=== PATIENT | female | born 1975 | race Caucasian/White ===

== ENCOUNTER 2019-07-24 13:13 | Observation (INO) ==
--- NOTE | 2019-07-24 13:57 | Emergency Department Note ---
Entered by Marcie Kam acting as a scribe for Tobi Mccauley DO History of Present Illness General Chief complaint: Cardiac Assessment Stated complaint: Tachy, HTN, anxious Time Seen by Provider: 07/24/19 13:31 Source: patient History of Present Illness Onset (ago): hour(s) (this morning) Location: chest Pain Consistency: + intermittent Quality: + other (tachycardia) Relieved By: not by medication (Aspirin) Associated symptoms: + denies other symptoms (abdominal pain, difficulty breathing, shortness of breath) and + other (dizziness, near-syncope, hypertension, burning in chest, arms and hand numbness) The patient is a 44 year old female that is presenting to the Emergency Room with complaints of intermittent episodes of tachycardia that started this morning. The patient reports that she was sitting in [employer] when she started to feel strange. She states that she felt dizzy and near-syncopal. She notes that she went out to the lobby and felt better after drinking some water. 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 She states that she had a friend measure her blood pressure, which was in the 150 systolic range. She notes that she took an aspirin and felt slightly better. She states that she went home and her symptoms returned. She reports that she felt like her heart was on fire and as though it was going to burst out of her chest. She denies any significant difficulty breathing. She notes that her arms and hands felt numb. She denies any difficulty walking but notes that she did not try walking much. She denies any abdominal pain. She notes that she had her menstrual period last week and states that it was one week late. The patient denies any recent long travel or surgical procedures. She denies any current chest pain or shortness of breath. She notes that she feels calm currently. She notes that she drank some coffee but no more than usual. She denies any history of hypertension. She denies any significant family history. She notes that she takes a low dose of Depakote daily and a multivitamin. She denies taking any control. The patient arrived via EMS. EMS reports that the patients systolic blood pressure was over 200 and her diastolic was in the 140 range. EMS states that the patient was shaking all over. EMS notes that the patient was given 1mg- Ativan on the way to the ED which dropped her blood pressure to 160/100. The patients nursing team notes that the patients blood pressure was 170/110 on arrival with a heart rate of 120bpm. Home Medications Home Medications Medication Instructions Recorded Confirmed Type divalproex 250 mg PO QPM 07/24/19 07/24/19 History magnesium oxide 400 mg PO QPM 07/24/19 07/24/19 History multivitamin 1 tab PO QAM 07/24/19 07/24/19 History riboflavin (vitamin B2) 25 mg PO QPM 07/24/19 07/24/19 History sumatriptan succinate 100 mg PO UD PRN 07/24/19 07/24/19 History Allergies Allergy/AdvReac Type Severity Reaction Status Date / Time No Known Allergies Allergy Mild Verified 07/24/19 14:09 Past Med/Surg History Medical History Migraine Family History Other No significant family history Social History Preferred Language: Hebrew Communication Ability: Effective marital status: Current Living Situation: Spouse and Family current occupational status: employed Feels Safe at Home: Yes Smoking Status: Never smoker Review of Systems See HPI for pertinent positives & negatives. and A total of 10 systems reviewed and were otherwise negative Physical Exam Vital Signs Vital Signs - 24 hr 07/24/19 12:56 07/24/19 13:23 07/24/19 13:41 Temperature 36.6 C Temperature Source Oral Oral Pulse Rate 118 H 125 H Pulse Rate from SpO2 Sensor 127 H Pulse Rhythm Regular Pulse Strength Normal Respiratory Rate 18 21 Respiratory Effort / Characteristics Non-Labored Respiratory Depth Normal Blood Pressure 172/109 H 142/87 H Blood Pressure Mean 130 101 Blood Pressure Position Lying Pulse Oximetry 99 99 Oxygen Delivery Method Room Air Room Air Sepsis Recent Fever Within 48 Hours No Sepsis Action Taken by Nursing No Action Required Pulse Oximetry Post Tiitration 07/24/19 13:44 07/24/19 13:45 07/24/19 14:15 Temperature Temperature Source Pulse Rate 129 H Pulse Rate from SpO2 Sensor 129 H 111 H Pulse Rhythm Pulse Strength Respiratory Rate 23 16 Respiratory Effort / Characteristics Respiratory Depth Blood Pressure Blood Pressure Mean Blood Pressure Position Pulse Oximetry 98 97 98 Oxygen Delivery Method Room Air Sepsis Recent Fever Within 48 Hours Sepsis Action Taken by Nursing Pulse Oximetry Post Tiitration 98 07/24/19 15:00 07/24/19 15:30 07/24/19 16:00 Temperature Temperature Source Pulse Rate 135 H 121 H 119 H Pulse Rate from SpO2 Sensor 135 H 122 H 121 H Pulse Rhythm Pulse Strength Respiratory Rate 19 14 14 Respiratory Effort / Characteristics Respiratory Depth Blood Pressure 158/106 H 160/96 H 159/98 H Blood Pressure Mean 125 114 109 Blood Pressure Position Pulse Oximetry 99 100 100 Oxygen Delivery Method Room Air Room Air Sepsis Recent Fever Within 48 Hours Sepsis Action Taken by Nursing Pulse Oximetry Post Tiitration 07/24/19 16:30 07/24/19 17:00 Temperature Temperature Source Pulse Rate 115 H 113 H Pulse Rate from SpO2 Sensor 115 H 114 H Pulse Rhythm Pulse Strength Respiratory Rate 14 20 Respiratory Effort / Characteristics Respiratory Depth Blood Pressure 144/88 H 145/94 H Blood Pressure Mean 106 106 Blood Pressure Position Pulse Oximetry 100 99 Oxygen Delivery Method Room Air Room Air Sepsis Recent Fever Within 48 Hours Sepsis Action Taken by Nursing Pulse Oximetry Post Tiitration GENERAL: The patient is awake and alert. She is somewhat anxious appearing. EYES: The conjunctivae are clear. The pupils are round and reactive. EARS, NOSE, MOUTH AND THROAT: The nose is without any evidence of any deformity. Mucous membranes are moist. Tongue is midline. NECK: The neck is nontender and supple. RESPIRATORY: Normal respiratory effort is noted there is no evidence of wheezing rhonchi or rales CARDIOVASCULAR: Tachycardic rate with regular rhythm was noted. There was no d efinite murmur. GASTROINTESTINAL: The abdomen is soft. Abdomen is nontender. MUSCULOSKELETAL/EXTREMITIES: There is no evidence of gross deformity full range of motion is noted in the hips and shoulders. SKIN: There is no obvious evidence of any rash. There are no petechiae, pallor or cyanosis noted. NEUROLOGIC: Patient is awake alert and oriented x3 strength is symmetric patellar reflexes are 2+ bilaterally Course Course 1342:The patient was evaluated in room B02. A complete history and physical examination was performed. 1634: I reevaluated the patient at this time. She reports feeling better but her heart rate remains tachycardic. 1636: I discussed the patients case with Dr. Watters, Cardiology, who agrees with further inpatient cardio work up. 1648: I discussed the patients case with LAZARO Tinajero, who will evaluate the patient for further management and care with Dr. Gonzalez as the attending physician. Administered Medications Discontinued Medications Magnesium Sulfate/Dextrose (Magnesium Sulfate / D5w) 1 gm in 100 mls @ 100 mls/hr IV ONE ONE Stop: 07/24/19 15:45 Last Infusion: 07/24/19 16:16 Dose: 0 mls/hr Documented by: [id number] Admin: 07/24/19 15:16 Dose: 100 mls/hr Documented by: [id number] Sodium Chloride (Nss 1000ml) 1,000 mls @ 999 mls/hr IV .Q1H1M ONE Stop: 07/24/19 15:46 Last Infusion: 07/24/19 16:16 Dose: 0 mls/hr Documented by: [id number] Admin: 07/24/19 15:15 Dose: 999 mls/hr Documented by: [id number] Medical Decision Making Differential Diagnosis Differential diagnoses includes but is not limited to acute coronary syndrome, myocardial infarction, pericarditis, pulmonary embolus, aortic dissection, pneumonia, pneumothorax, musculoskeletal, shingles, esophageal. Medical Records Attestation: I reviewed the patient's medical records. Home Medications Current Medication List: was personally reviewed by me Laboratory Data Attestation: I reviewed the patient's lab results. Result diagrams: 07/24/19 14:20 07/24/19 14:20 Lab Results 07/24/19 07/24/19 07/24/19 Range/Units 14:20 14:20 14:20 WBC 10.61 (4.8-10.8) K/uL RBC 4.86 (4.2-5.4) M/uL Hgb 14.6 (12.0-16.0) g/dL Hct 41.7 (37-47) % MCV 85.8 (80-100) fL MCH 30.0 (25-34) pg MCHC 35.0 (32-36) g/dL RDW Std Deviation 38.1 (36.4-46.3) fL RDW Coeff of Des 12.1 (11.5-14.5) % Plt Count 282 (130-400) K/uL MPV 9.3 (7.4-10.4) fL Immature Gran % (Auto) 0.3 % Neut % (Auto) 80.0 % Lymph % (Auto) 14.2 % [place] % (Auto) 4.9 % Eos % (Auto) 0.4 % Baso % (Auto) 0.2 % Immature Gran # (Auto) 0.03 H (0.00-0.02) K/uL Neut # (Auto) 8.49 H (1.4-6.5) K/uL Lymph # (Auto) 1.51 (1.2-3.4) K/uL [place] # (Auto) 0.52 (0.11-0.59) K/uL Eos # (Auto) 0.04 (0-0.5) K/uL Baso # (Auto) 0.02 (0-0.2) K/uL PT (9.0-12.0) Seconds INR (0.9-1.1) APTT (21.0-31.0) Seconds PTT Ratio D-Dimer (0-500) ug/L FEU Sodium 143 (136-145) mmol/L Potassium 3.4 L (3.5-5.1) mmol/L Chloride 110 H (98-107) mmol/L Carbon Dioxide 23 (21-32) mmol/L Anion Gap 10.0 (3-11) BUN 7 (7-18) mg/dl Creatinine 0.63 (0.6-1.2) mg/dl Est Cr Clr Drug Dosing 87.8 ml/min Est GFR ( Amer) 128.2 Est GFR (Non-Af Amer) 110.6 BUN/Creatinine Ratio 10.3 (10-20) Glucose 82 (70-99) mg/dl Calcium 7.8 L (8.5-10.1) mg/dl Magnesium 1.7 L (1.8-2.4) mg/dl Total Bilirubin 0.4 (0.2-1) mg/dl AST 15 (15-37) U/L ALT 15 (12-78) U/L Alkaline Phosphatase 41 L (45-117) U/L Troponin I < 0.015 (0-0.045) ng/ml Total Protein 6.6 (6.4-8.2) gm/dl Albumin 3.5 (3.4-5.0) gm/dl Globulin 3.1 (2.5-4.0) gm/dl Albumin/Globulin Ratio 1.1 (0.9-2) Lipase 89 (73-393) U/L TSH 1.850 (0.300-4.500) uIu/ml HCG, Qual Negative (Negative) Valproic Acid (50-100) mcg/ml 07/24/19 07/24/19 Range/Units 14:20 14:20 WBC (4.8-10.8) K/uL RBC (4.2-5.4) M/uL Hgb (12.0-16.0) g/dL Hct (37-47) % MCV (80-100) fL MCH (25-34) pg MCHC (32-36) g/dL RDW Std Deviation (36.4-46.3) fL RDW Coeff of Des (11.5-14.5) % Plt Count (130-400) K/uL MPV (7.4-10.4) fL Immature Gran % (Auto) % Neut % (Auto) % Lymph % (Auto) % [place] % (Auto) % Eos % (Auto) % Baso % (Auto) % Immature Gran # (Auto) (0.00-0.02) K/uL Neut # (Auto) (1.4-6.5) K/uL Lymph # (Auto) (1.2-3.4) K/uL [place] # (Auto) (0.11-0.59) K/uL Eos # (Auto) (0-0.5) K/uL Baso # (Auto) (0-0.2) K/uL PT 10.6 (9.0-12.0) Seconds INR 1.0 (0.9-1.1) APTT 22.2 (21.0-31.0) Seconds PTT Ratio 0.8 D-Dimer < 190 (0-500) ug/L FEU Sodium (136-145) mmol/L Potassium (3.5-5.1) mmol/L Chloride (98-107) mmol/L Carbon Dioxide (21-32) mmol/L Anion Gap (3-11) BUN (7-18) mg/dl Creatinine (0.6-1.2) mg/dl Est Cr Clr Drug Dosing ml/min Est GFR ( Amer) Est GFR (Non-Af Amer) BUN/Creatinine Ratio (10-20) Glucose (70-99) mg/dl Calcium (8.5-10.1) mg/dl Magnesium (1.8-2.4) mg/dl Total Bilirubin (0.2-1) mg/dl AST (15-37) U/L ALT (12-78) U/L Alkaline Phosphatase (45-117) U/L Troponin I (0-0.045) ng/ml Total Protein (6.4-8.2) gm/dl Albumin (3.4-5.0) gm/dl Globulin (2.5-4.0) gm/dl Albumin/Globulin Ratio (0.9-2) Lipase (73-393) U/L TSH (0.300-4.500) uIu/ml HCG, Qual (Negative) Valproic Acid 7 L (50-100) mcg/ml Imaging Data Radiologist's Impression: Radiology results as stated below per my review and the radiologist's interpretation: XR chest 1V portable HISTORY: 44 years-old Female Chest Pain acute atypical chest pain COMPARISON: CT abdomen and pelvis 06/06/2007 TECHNIQUE: Portable AP view of the chest FINDINGS: Cardiomediastinal and hilar silhouettes are within normal limits. No pneumothor ax, pleural effusion, focal airspace consolidation or overt pulmonary edema. Bones of the chest appear grossly intact. IMPRESSION: No acute process. ACT 112: Negative or not required by law. The above report was generated using voice recognition software. It may contain grammatical, syntax or spelling errors. Electronically signed by: Pedro Smith M.D. 07/24/2019 2:33 PM ECG Data Attestation: I personally reviewed and interpreted this ECG as follows: Indication: + chest pain Rate (beats per minute): 109 Rhythm: + sinus tachycardia ECG ST segments: + ST depression (Diffuse) ECG Findings: no PACs and no PVCs Comparison ECG Date: no prior available Blood Pressure Blood Pressure Findings: Elevated blood pressure Blood Pressure Disposition: elevated BP felt to be situational MDM Narrative The patient is a 44-year-old female who presented to the emergency department for an evaluation of palpitations. The patient was at [employer] when she started h aving an episode of near syncope and palpitations. On route to the hospital the patient was given Ativan after medic command was called. The patient arrived via EMS. The patient was feeling somewhat improved after Ativan but had persistent sinus tachycardia while she was in the emergency department. She had abnormal EKG findings including ST segment depressions which were diffuse. Her d-dimer was negative. She was not hypoxic. Her thyroid function was not abnormal. The patient was treated with IV fluids as well as IV magnesium replacement. She was somewhat improved on reevaluation but still had some of the symptoms of palpitations. I discussed the patient's laboratory and radiographic studies with her which included an abnormal EKG. I discussed her case with the on-call [facility] bedspread folder. I also discussed her case with the on-call [facility] hospitalist group. At this time I do feel the patient would benefit from inpatient management as well as possible further cardiac work-up which might include echocardiogram. I discussed this with the patient she was agreeable. She was reevaluated multiple times. Impression & Plan Heart palpitations, Near syncope, Tachycardia, Abnormal EKG, Hypomagnesemia Discharge Plan Visit Data Chief Complaint: Cardiac Assessment Stated Complaint: Tachy, HTN, anxious ED Provider: Tobi Mccauley Discharge Problem: Heart palpitations, Near syncope, Tachycardia, Abnormal EKG, Hypomagnesemia Patient Disposition: Being Evaluated by Hospitalist Forms Stand Alone Forms: My [facility] Prescriptions Prescriptions: No Action multivitamin Tablet 1 tab PO QAM RF: 0 riboflavin (vitamin B2) 25 mg Tablet 25 mg PO QPM RF: 0 divalproex 250 mg tablet,delayed release (DR/EC) 250 mg PO QPM RF: 0 sumatriptan succinate 100 mg tablet 100 mg PO UD PRN (Reason: Migraine Headache) RF: 0 magnesium oxide 400 mg magnesium Tablet 400 mg PO QPM RF: 0 Referrals Referrals: Octavio Mayfield MD [Primary Care Provider] - The scribe's documentation has been prepared under my direction and personally reviewed by me in its entirety. I confirm that the note above accurately ref lects all work, treatment, procedures, and medical decision making performed by me.
[2019-07-24 14:29] LABS: Basophils # (auto) 0.02 K/uL (0-0.2); Basophils % (auto) 0.2 %; Eosinophils # (auto) 0.04 K/uL (0-0.5); Eosinophils % (auto) 0.4 %; Hematocrit (blood only) 41.7 % (37-47); Hemoglobin 14.6 g/dL (12.0-16.0); Immature Granulocytes # (auto) 0.03 K/uL (0.00-0.02); Immature Granulocytes % (auto) 0.3 %; Lymphocytes # (auto) 1.51 K/uL (1.2-3.4); Lymphocytes % (auto) 14.2 %; Mean Corpuscular Volume 85.8 fL (80-100); Mean Platelet Volume 9.3 fL (7.4-10.4); Monocytes # (auto) 0.52 K/uL (0.11-0.59); Monocytes % (auto) 4.9 %; Neutrophils # (auto) 8.49 K/uL (1.4-6.5); Platelet Count 282 K/uL (130-400); RDW Coefficient of Variation 12.1 % (11.5-14.5); RDW Standard Deviation 38.1 fL (36.4-46.3); Red Blood Count 4.86 M/uL (4.2-5.4); White Blood Count 10.61 K/uL (4.8-10.8)
--- NOTE | 2019-07-24 14:34 | XRay Report ---
XR chest 1V portable HISTORY: 44 years-old Female Chest Pain acute atypical chest pain COMPARISON: CT abdomen and pelvis 06/06/2007 TECHNIQUE: Portable AP view of the chest FINDINGS: Cardiomediastinal and hilar silhouettes are within normal limits. No pneumothorax, pleural effusion, focal airspace consolidation or overt pulmonary edema. Bones of the chest appear grossly intact. IMPRESSION: No acute process. ACT 112: Negative or not required by law. The above report was generated using voice recognition software. It may contain grammatical, syntax o r spelling errors. Electronically signed by: Pedro Smith M.D. 07/24/2019 2:33 PM
[2019-07-24 14:45] LABS: Alanine Aminotransferase 15 U/L (12-78); Albumin Level 3.5 gm/dl (3.4-5.0); Aspartate Aminotransferase 15 U/L (15-37); BUN Creatinine Ratio 10.3 (10-20); Blood Urea Nitrogen 7 mg/dl (7-18); Calcium 7.8 mg/dl (8.5-10.1); Carbon Dioxide 23 mmol/L (21-32); Chloride 110 mmol/L (98-107); Creatinine Clr Calc Pharmacy 87.8 ml/min; Est GFR (African American) 128.2; Est GFR (Non-African American) 110.6; Glucose 82 mg/dl (70-99); Lipase 89 U/L (73-393); Magnesium 1.7 mg/dl (1.8-2.4); Potassium 3.4 mmol/L (3.5-5.1); Sodium 143 mmol/L (136-145)
[2019-07-24 14:46] LABS: D Dimer < 190 ug/L FEU (0-500); Partial Thromboplastin Ratio 0.8; Partial Thromboplastin Time 22.2 Seconds (21.0-31.0); Prothrombin Time 10.6 Seconds (9.0-12.0)
[2019-07-24] MEDS ORDERED: MAGNESIUM SULFATE / D5W 1 GM/100 ML BAG IV ONE (14:46)
[2019-07-24] MEDS ORDERED: SODIUM CHLORIDE 0.9% 1000ML 1,000 ML IV ONE (14:46)
[2019-07-24 14:56] LABS: Albumin Globulin Ratio 1.1 (0.9-2); Alkaline Phosphatase 41 U/L (45-117); Bilirubin,Total 0.4 mg/dl (0.2-1); Globulin 3.1 gm/dl (2.5-4.0); Total Protein 6.6 gm/dl (6.4-8.2); Troponin I < 0.015 ng/ml (0-0.045)
[2019-07-24 15:12] LABS: Pregnancy Test, Serum Negative (Negative)
--- NOTE | 2019-07-24 18:50 | History & Physical Report ---
Date of Service July 24, 2019 Assessment & Plan (1) Tachycardia: (2) Abnormal EKG: (3) Heart palpitations: (4) Near syncope: -Admit to telemetry -Patient presenting from home with reports of lightheadedness, near syncope, palpitations -In the ED, EKG shows sinus tachycardia with ST depressions in the anterior and lateral leads; initial troponin negative -Found to have mild electrolyte abnormalities with hypokalemia and hypomagnesemia -Patient admits to drinking 4 cups coffee/day (not new) -Takes Imitrex as needed for migraines, last dose > 1 week ago -D-dimer negative -Continue cycle cardiac enzymes, check resting echo -Hold on rate controlling medications at this time unless patient becomes unstable -Cardiology consult, input appreciated (5) Hypomagnesemia: (6) Hypokalemia: -K+ 3.4, MG +1.7 -Replace, follow electrolytes (7) Migraine: -Takes divalproex for maintenance (8) DVT prophylaxis: -SCDs, ambulate History of Present Illness Chief Complaint: Lightheadedness, palpitations Primary Care Provider: Octavio Mayfield MD 44-year-old female who presents the ED with lightheadedness and palpitations. Patient reports she was at [employer] this morning when she had a sudden onset of not feeling well with lightheadedness and severe heart palpitations. Patient reports she exited the [employer] service and a friend was able to get her blood pressure who told her that her blood pressure was very high. Patient drank some water and reports she had felt better but decided to go home. When she arrived home and had laid down, the symptoms returned. She reports she also had some bilateral hand tingling. EMS was called and patient was brought to the ED for further evaluation. Patient denies chest pain or pressure. No shortness of breath. Reports she otherwise been feeling well recently. No recent travel. Denies abdominal pain, nausea, vomiting, diarrhea. No fevers or chills. Denies any urinary symptoms. Patient reports she drank 4 cups of coffee this morning on empty stomach which is per her usual. In the ED, patient is on a be tachycardic in the 110s. EKG shows ST depressions in the anterior and lateral leads. Initial troponin is negative. BP is stable. Labs show mild hypokalemia and hypomagnesemia. Patient was given IVF and IV magnesium replacement. Allergies Allergy/AdvReac Type Severity Reaction Status Date / Time No Known Allergies Allergy Mild Verified 07/24/19 14:09 Home Medications Home Medications Medication Instructions Recorded Confirmed Type divalproex 250 mg PO QPM 07/24/19 07/24/19 History folic acid 1 mg PO DAILY 07/24/19 07/24/19 History magnesium oxide 400 mg PO QPM 07/24/19 07/24/19 History riboflavin (vitamin B2) 400 mg PO DAILY 07/24/19 07/24/19 History sumatriptan succinate 100 mg PO UD PRN 07/24/19 07/24/19 History Past Med/Surg History Medical History (Updated 07/24/19 @ 18:55 by LAZARO Tinajero) Migraine Renal calculi Surgical History (Updated 07/24/19 @ 18:52 by LAZARO Tinajero) No significant past surgical history Family History Mother Hypertension Dyslipidemia Father Diabetes Dyslipidemia Social History (Updated 07/24/19 @ 18:53 by LAZARO Tinajero) Preferred Language: American Communication Ability: Effective Shipfitter Required: No Beliefs That Will Affect Care: None marital status: Current Living Situation: Spouse current occupational status: employed Other Information That Helps Us Care for You: No Feels Safe at Home: Yes Safety Concerns: Feels Safe At This Time Smoking Status: Never smoker Do You Dip or Chew Tobacco: No ; Second Hand Exposure: No ; Tobacco Cessation Education Requested by Patient: No Hx Alcohol Use: Yes Alcohol type: wine Alcohol Intake Frequency: Daily Alcohol Intake Frequency Comment: 1 glass wine/night Hx Substance Use: No Review of Systems Review of Systems: ROS per HPI, all other systems reviewed and negative Physical Exam Constitutional: WD/WN, vitals as above Eyes: PERRL, conjunctivae normal, anicteric sclerae ENMT: external ear and nose normal, oropharynx normal Respiratory: normal respiratory effort, lungs clear to auscultation Cardiovascular: Rate/Rhythm: regular rhythm and + tachycardic Vessels: normal peripheral pulses Extremities: no edema Gastrointestinal (Abdomen): normal bowel sounds, soft, nontender, no hepatosplenomegaly Musculoskeletal: no cyanosis or clubbing, extremities motor strength 5/5 Skin: no rashes, warm and dry Neurologic: PERRL, EOMI, accommodation nl, no face palsy, no dysarthria Psychiatric: A+Ox3, euthymic affect Results & Data Vital Signs (Past 12 Hours) Vital Signs Temp Pulse Pulse Resp BP BP Pulse Ox 07/24/19 18:30 120 H 18 146/98 H 07/24/19 18:00 112 H 18 130/95 96 07/24/19 17:30 116 H 17 162/95 H 100 07/24/19 17:00 113 H 20 145/94 H 99 07/24/19 16:30 115 H 14 144/88 H 100 07/24/19 16:00 119 H 14 159/98 H 100 07/24/19 15:30 121 H 14 160/96 H 100 07/24/19 15:00 135 H 19 158/106 H 99 07/24/19 14:15 16 98 07/24/19 13:45 129 H 23 97 07/24/19 13:44 98 07/24/19 13:41 125 H 21 142/87 H 99 07/24/19 12:56 36.6 C 118 H 18 172/109 H 99 Laboratory Results Short CBC 07/24/19 Range/Units 14:20 WBC 10.61 (4.8-10.8) K/uL Hgb 14.6 (12.0-16.0) g/dL Hct 41.7 (37-47) % Plt Count 282 (130-400) K/uL BMP 07/24/19 14:20 Sodium 143 Potassium 3.4 L Chloride 110 H Carbon Dioxide 23 BUN 7 Creatinine 0.63 Glucose 82 Calcium 7.8 L Cardiac Enzymes 07/24/19 Range/Units 14:20 Troponin I < 0.015 (0-0.045) ng/ml Liver Function 07/24/19 Range/Units 14:20 Total Bilirubin 0.4 (0.2-1) mg/dl AST 15 (15-37) U/L ALT 15 (12-78) U/L Alkaline Phosphatase 41 L (45-117) U/L Albumin 3.5 (3.4-5.0) gm/dl Diagnostic Findings CXR IMPRESSION: No acute process. Code Status & VTE Plan VTE Prophylaxis Plan VTE Prophylaxis will be ordered: Yes Supervising Physician Co-Signing Physician Notes HISTORY: Record reviewed. Patient interviewed and examined in ED. Care coordinated with LAZARO Tinajero. Please refer to her documentation for complete history. Briefly, 44 YO female who presented to ED after 2 episodes of palpitations and weakness today. No CP or SOB. EXAM: General- no distress Lungs- clear to auscultation; no respiratory distress Cardiovascular- RRR, tachycardic; I/ systolic murmur at base; no gallop; no JVD; no pretibial edema Abdomen- + bowel sounds, soft, nontender Extremities- no cyanosis; no calf tenderness Neuro- alert, oriented Skin- warm & dry DATA: CBC unremarkable. D-dimer normal. Sodium 143, potassium 3.4, chloride 110, CO2 23, BUN 7, creatinine 0.63, glucose 82, calcium 7.8, magnesium 1.7. Troponin I less than 0.015. TSH normal. Other lab studies as noted. Chest x-ray unremarkable. EKG performed at 1318 reviewed and demonstrated sinus tachycardia at 110/ minute, lateral ST depression. ASSESSMENT AND PLAN: Palpitations 2 episodes of palpitations today associated with lightheadedness, but no CP or SOB. EKG shows sinus tachycardia. Not experiencing palpitations in ED despite ST. Consider paroxysmal SVT. K and Mg low- replace, follow. Pulmonary embolism very unlikely with normal D-dimer. TSH normal. Cardiac monitoring. Abnormal EKG EKG demonstrates ST depression laterally. Nonspecific finding, but must consider possible myocardial ischemia. Check echo. Further evaluation per Cardiology. Hypokalemia / hypomagnesemia Not on diuretics. No emesis or diarrhea. Replace, follow. Please refer to CHEY Navarrete's documentation for discussion of other issues.
[2019-07-24] MEDS ORDERED: ACETAMINOPHEN 325 MG TAB PO PRN (19:24)
[2019-07-24] MEDS ORDERED: POTASSIUM CHLORIDE 20 MEQ TABCR PO ONE (20:00)
[2019-07-24] MEDS ORDERED: MAGNESIUM OXIDE 400 MG TAB PO SCH (21:00)
[2019-07-24] MEDS ORDERED: DIVALPROEX DELAY RELEASE 250 MG TABEC PO SCH (21:00)
[2019-07-25 02:07] LABS: Hemoglobin 13.8 g/dL (12.0-16.0); Mean Corpuscular Hemoglobin 30.1 pg (25-34); Mean Corpuscular Hgb Conc 34.5 g/dL (32-36); Mean Corpuscular Volume 87.1 fL (80-100); Mean Platelet Volume 8.9 fL (7.4-10.4); Platelet Count 285 K/uL (130-400); RDW Coefficient of Variation 12.2 % (11.5-14.5); Red Blood Count 4.59 M/uL (4.2-5.4); White Blood Count 10.36 K/uL (4.8-10.8)
[2019-07-25 02:33] LABS: BUN Creatinine Ratio 15.9 (10-20); Blood Urea Nitrogen 11 mg/dl (7-18); Calcium 8.6 mg/dl (8.5-10.1); Carbon Dioxide 24 mmol/L (21-32); Chloride 108 mmol/L (98-107); Creatinine Clr Calc Pharmacy 76.8 ml/min; Est GFR (African American) 119.7; Est GFR (Non-African American) 103.3; Glucose 85 mg/dl (70-99); Magnesium 2.3 mg/dl (1.8-2.4); Potassium 4.5 mmol/L (3.5-5.1); Sodium 139 mmol/L (136-145)
[2019-07-25 02:47] LABS: Troponin I < 0.015 ng/ml (0-0.045)
[2019-07-25] MEDS ORDERED: NON-FORMULARY MEDICATION (Riboflavin (Vitamin B2) 400 MG) PO SCH (09:00)
[2019-07-25] MEDS ORDERED: FOLIC ACID 1 MG TAB PO SCH (09:00)
[2019-07-25] MEDS ORDERED: METOPROLOL TARTRATE 1 MG/ML VIAL IV ONE ×2 (10:13→10:15)
[2019-07-25] MEDS ORDERED: METOPROLOL TARTRATE 25 MG TAB PO SCH (10:30)
--- NOTE | 2019-07-25 11:12 | Cardiology Consultation ---
Date of Consultation July 25, 2019 Assessment & Plan (1) Atrial tachycardia: Mrs. Owen describes onset of subjective palpitations with sensation of near syncope that occurred 2 or 3 times yesterday, and was reproduced again today while on telemetry at 10:03 AM. Per review of her presenting EKG from yesterday along with the repeat this morning, there does appear to be a subtle difference in the morphology of the P waves suggestive that the tachycardic rhythm may be an atrial tachycardia. Review of telemetry does not reveal an abrupt onset and offset, but she certainly reproduced her symptoms with associated heart rates of 135 bpm when I was interviewing her today. On presentation, she had been found to have mildly low potassium and mildly low magnesium levels of 3.4 mmol/L at 1.7 mg/dL respectively, which have been replaced. Serial troponin levels have been negative. She does not have symptoms to suggest ischemic heart disease. A resting echocardiogram revealed normal findings with no evidence of underlying structural heart disease. At this time, I recommend proceeding with low-dose beta-inge therapy, in the short-term I have ordered a dose of IV metoprolol 2.5 mg x 1 for acute symptoms, and will start metoprolol tartrate, 25 mg twice daily, although looking forward to, metoprolol succinate 25 mg once per day may be more reasonable. The short acting formulation was chosen acutely in order to allow for acute onset of treatment. I long discussion with the patient and her that I would estimate her risk of complications such as sudden cardiac as being very low, and that this rhythm abnormality is typically more of a nuisance. I am going to ask Dr Romeo to also see her in EP consultation for further advice. History of Present Illness Attending Physician: Noa Valera DO History of Present Illness Yi Owen is a 44 year old female seen in general cardiology consultation per the request of LAZARO Tinajero of the [facility] for the evaluation of palpitations and intermittent near syncope. The patient's primary care provider is Dr Mayfield. She has a history of migraine headaches and has been observed in the past for borderline high blood pressure that had not required treatment in the past. The patient describes being in her normal state of health yesterday. She had 4 cups of coffee and no breakfast prior to going to [facility], however this is typical routine. She was under no emotional or psychological stress when she felt onset of feeling like her heart was going to beat out of her chest, she felt her heart rate was going "a mile a minute" with associated feeling like she was going to pass out. She also felt a tingling in her cheeks arms, and hands. First she had her come over to help her. She left the [employer] service and had a drink of water and felt momentarily improved. Then the symptoms returned. A friend who is a nurse took her vital signs and counseled her that her heart rate and blood pressure were both elevated. The patient then went home and lay down, and had recurrence of her symptoms a third time while at home. EKG performed on arrival to the emergency room revealed what at first appearance was sinus tachycardia with mild upsloping ST segment depression of 109 bpm. The QT interval was normal. Repeat EKG performed at 710 this morning revealed normal sinus rhythm at 72 bpm. While I was interviewing the patient at 1003 this morning, she had acute onset of reproduction of the same symptoms, and on telemetry, it was observed that her heart rate which had been in the range of 70 to 77 bpm when I walked into the exam room, increased to 135 bpm and was sustained. Allergies Allergy/AdvReac Type Severity Reaction Status Date / Time No Known Allergies Allergy Mild Verified 07/24/19 14:09 Home Medications Home Medications Medication Instructions Recorded Confirmed Type divalproex 250 mg PO QPM 07/24/19 07/24/19 History folic acid 1 mg PO DAILY 07/24/19 07/24/19 History magnesium oxide 400 mg PO QPM 07/24/19 07/24/19 History riboflavin (vitamin B2) 400 mg PO DAILY 07/24/19 07/24/19 History sumatriptan succinate 100 mg PO UD PRN 07/24/19 07/24/19 History Patient History Medical History (Updated 07/25/19 @ 11:07 by Kurt Barnes DO) Migraine Renal calculi Surgical History (Updated 07/24/19 @ 18:52 by LAZARO Tinajero) No significant past surgical history Family History Mother Hypertension Dyslipidemia Father Diabetes Dyslipidemia Social History (Updated 07/24/19 @ 18:53 by LAZARO Tinajero) Preferred Language: Scottish Communication Ability: Effective Hazardous Materials Driver Required: No Beliefs That Will Affect Care: None marital status: Current Living Situation: Spouse current occupational status: employed Other Information That Helps Us Care for You: No Feels Safe at Home: Yes Safety Concerns: Feels Safe At This Time Smoking Status: Never smoker Do You Dip or Chew Tobacco: No ; Second Hand Exposure: No ; Tobacco Cessation Education Requested by Patient: No Hx Alcohol Use: Yes Alcohol type: wine Alcohol Intake Frequency: Daily Alcohol Intake Frequency Comment: 1 glass wine/night Hx Substance Use: No Review of Systems Review of Systems: All systems reviewed & are unremarkable except as noted in HPI & below Physical Exam Physical Exam: Temp Pulse Resp BP Pulse Ox 36.6 C 75 18 119/79 98 07/25/19 07:11 07/25/19 10:22 07/25/19 07:11 07/25/19 10:22 07/25/19 07:11 Constitutional: WD/WN, vitals as above Respiratory: normal respiratory effort, lungs clear to auscultation Cardiovascular: RRR, no murmur, no edema Gastrointestinal (Abdomen): normal bowel sounds, soft, nontender, no hepatosplenomegaly Skin: no rashes, warm and dry Neurologic: PERRL, EOMI, accommodation nl, no face palsy, no dysarthria Results & Data Vital Signs (Past 12 Hours) Vital Signs Temp Pulse Pulse Resp BP BP Pulse Ox 07/25/19 10:22 75 119/79 07/25/19 07:11 36.6 C 72 18 119/79 98 07/25/19 03:52 36.6 C 75 20 122/90 99 07/24/19 23:58 36.8 C 86 18 115/83 98 07/24/19 23:57 81 Laboratory Results Cardiac Enzymes 07/24/19 07/24/19 07/25/19 Range/Units 14:20 19:56 01:55 AST 15 (15-37) U/L Troponin I < 0.015 < 0.015 < 0.015 (0-0.045) ng/ml Coagulation 07/24/19 Range/Units 14:20 PT 10.6 (9.0-12.0) Seconds APTT 22.2 (21.0-31.0) Seconds CBC 07/24/19 07/25/19 Range/Units 14:20 01:55 WBC 10.61 10.36 (4.8-10.8) K/uL RBC 4.86 4.59 (4.2-5.4) M/uL Hgb 14.6 13.8 (12.0-16.0) g/dL Hct 41.7 40.0 (37-47) % Plt Count 282 285 (130-400) K/uL Neut # (Auto) 8.49 H (1.4-6.5) K/uL Lymph # (Auto) 1.51 (1.2-3.4) K/uL [place] # (Auto) 0.52 (0.11-0.59) K/uL Eos # (Auto) 0.04 (0-0.5) K/uL Baso # (Auto) 0.02 (0-0.2) K/uL Comprehensive Metabolic Panel 07/24/19 07/25/19 Range/Units 14:20 01:55 Sodium 143 139 (136-145) mmol/L Potassium 3.4 L 4.5 D (3.5-5.1) mmol/L Chloride 110 H 108 H (98-107) mmol/L Carbon Dioxide 23 24 (21-32) mmol/L BUN 7 11 D (7-18) mg/dl Creatinine 0.63 0.72 (0.6-1.2) mg/dl Glucose 82 85 (70-99) mg/dl Calcium 7.8 L 8.6 (8.5-10.1) mg/dl AST 15 (15-37) U/L ALT 15 (12-78) U/L Alkaline Phosphatase 41 L (45-117) U/L Total Protein 6.6 (6.4-8.2) gm/dl Albumin 3.5 (3.4-5.0) gm/dl Intake and Output 07/24/19 07/25/19 07/25/19 22:59 06:59 14:59 Intake Total 1100 / 1350 250 / 1350 Balance 1100 / 1350 250 / 1350 Intake: IV 1100 / 1100 MAGNESIUM SULFATE / D5W 1 gm In 100 / 100 100 ml @ 100 mls/hr IV ONE ONE Rx#:[id number] Nss 1000ML 1,000 ml @ 999 mls/ 1000 / 1000 hr IV .Q1H1M ONE Rx#:[id number] Oral 250 / 250 Other: Other Intake Source sips # Unmeasured Voids 1 Weight 52.3 kg 51.8 kg Medications Administered Current Inpatient Medications Acetaminophen (Tylenol) 650 mg PO Q4H PRN PRN Reason: Pain or Fever Stop: 08/23/19 19:23 Divalproex Sodium (Depakote Delay Release) 250 mg PO QPM [facility] Stop: 08/23/19 20:59 Last Admin: 07/24/19 20:28 Dose: 250 mg Documented by: Folic Acid (Folvite) 1 mg PO DAILY [facility] Stop: 08/24/19 08:59 Last Admin: 07/25/19 09:29 Dose: 1 mg Documented by: Magnesium Oxide (Mag-Ox) 400 mg PO QPM [facility] Stop: 08/23/19 20:59 Last Admin: 07/24/19 20:28 Dose: 400 mg Documented by: Metoprolol Tartrate (Lopressor) 25 mg PO BID [facility] Stop: 08/24/19 10:29
--- NOTE | 2019-07-25 12:22 | Cardiology Consultation ---
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 She seems to be a very reliable historian without similar symptoms in the past. Some features of her history are similar to symptoms commonly encounter to neurocardiogenic syncope. It is possible that she developed a sinus tachycardia which triggered reflex syncope symptoms. However, she was noted to be hypertensive by a nurse at her spiritism. This does not fit well with that diagnosis. Alternatively, she could have an ectopic atrial tachycardia. She certainly has fairly paroxysmal elevations in her heart rate. This was witnessed earlier today while she was in bed. The onset was relatively gradual and the resolution was also gradual. There did not appear to be any obvious change in the P-wave morphology, but there were only 3 leads available for evaluation. She is an otherwise healthy individual with normal cardiac structure and function. She exercises regularly without cardiac symptoms. I think this is a relatively benign phenomenon which can be treated according to symptoms. The main risk is simply syncope and associated injury. However, she easily recognize the symptoms and was counseled regarding the need to sit or lie down at the onset of symptoms both to abort syncope and avoid injury. I think would be reasonable to start her on a low-dose beta-inge. 40 milligrams daily of extended release propranolol would be a good start. Given her history of migraines propranolol may be a good choice. In the absence of a more definitive diagnosis or evidence of an atrial tachycardia, I would refrain from antiarrhythmic medications. For refractory symptoms in the absence of clear change in P-wave morphology, electrophysiologic testing could be considered. History of Present Illness Reason for Consultation: Tachycardia, palpitations Requesting Physician: Molly Attending Physician: Noa Valera DO History of Present Illness The patient is a 44-year-old woman without a known history of cardiac disease who experienced the onset of palpitations and presyncope yesterday while in spiritism. Patient states she was standing at the time. She began to notice a rapid heartbeat almost simultaneously with a sense of dizziness and lightheadedness. She did not endorse nausea. She did not endorse diaphoresis. Her who was present for today's interview stated that she looked slightly pale. She is able to sit down and her symptoms generally resolved. She does wear a Fitbit and she noticed a high heart rate. A friend who was a nurse was available for evaluation and at that time she noted her heart rate was high and her blood pressure was also high. The patient went home to rest but had recurrence of the symptoms and presents to the emergency room for evaluation. She did not lose consciousness. She did not have associated chest pains. She cannot recall similar episodes in the past. She did not endorse symptoms of occasional palpitations. In general she is a very active individual who was accustomed to routine exercise such as running. She did not report any symptoms associated with that activity. She has not have exertional symptoms such as dyspnea or chest pain. Allergies Allergy/AdvReac Type Severity Reaction Status Date / Time No Known Allergies Allergy Mild Verified 07/24/19 14:09 Home Medications Home Medications Medication Instructions Recorded Confirmed Type divalproex 250 mg PO QPM 07/24/19 07/24/19 History folic acid 1 mg PO DAILY 07/24/19 07/24/19 History magnesium oxide 400 mg PO QPM 07/24/19 07/24/19 History riboflavin (vitamin B2) 400 mg PO DAILY 07/24/19 07/24/19 History sumatriptan succinate 100 mg PO UD PRN 07/24/19 07/24/19 History Patient History Medical History (Updated 07/25/19 @ 11:07 by Kurt Barnes DO) Migraine Renal calculi Surgical History (Updated 07/24/19 @ 18:52 by LAZARO Tinajero) No significant past surgical history Family History Mother Hypertension Dyslipidemia Father Diabetes Dyslipidemia Social History (Updated 07/24/19 @ 18:53 by LAZARO Tinajero) Preferred Language: Swazi Communication Ability: Effective Plant Hr Manager Required: No Beliefs That Will Affect Care: None marital status: Current Living Situation: Spouse current occupational status: employed Other Information That Helps Us Care for You: No Feels Safe at Home: Yes Safety Concerns: Feels Safe At This Time Smoking Status: Never smoker Do You Dip or Chew Tobacco: No ; Second Hand Exposure: No ; Tobacco Cessation Education Requested by Patient: No Hx Alcohol Use: Yes Alcohol type: wine Alcohol Intake Frequency: Daily Alcohol Intake Frequency Comment: 1 glass wine/night Hx Substance Use: No Review of Systems Review of Systems: All systems reviewed & are unremarkable except as noted in HPI & below Physical Exam Physical Exam: She is alert and oriented x3. Mood affect appear normal. She answered all questions appropriately. HEENT: Sclerae are anicteric. Pupils are equal and reactive to light and accommodation. Extraocular movements were intact. Neuro: Cranial nerves intact Neck: Examination of the submandibular region did not reveal any significant lymphadenopathy. Carotids are palpable bilaterally and free of bruits on auscultation. There was no evidence of jugular venous distention. The thyroid was not enlarged. Lungs: Lungs are clear to auscultation bilaterally. There are no rales wheezes or rhonchi. She has normal respiratory effort without use of accessory muscles. There is normal pulmonary excursion. Cardiac: The rhythm was regular. S1 and S2 were normal. There are no murmurs on examination. The PMI was not markedly displaced on palpation. Abdomen: The abdomen was soft and nontender. Extremities: Patient has bilateral radial pulses that are equal in intensity. There is no evidence cyanosis or clubbing. There was no evidence of significant peripheral edema bilaterally. Skin: There are no rashes noted on examination today. Results & Data Vital Signs (Past 12 Hours) Vital Signs Temp Pulse Pulse Resp BP BP Pulse Ox 07/25/19 11:44 36.6 C 100 H 18 135/91 100 07/25/19 11:39 36.3 C L 60 17 114/67 91 07/25/19 10:22 75 119/79 07/25/19 07:11 36.6 C 72 18 119/79 98 07/25/19 03:52 36.6 C 75 20 122/90 99 Laboratory Results Abnormal Lab Results 07/24/19 07/24/19 07/24/19 14:20 14:20 14:20 WBC 10.61 RBC 4.86 Hgb 14.6 Hct 41.7 MCV 85.8 MCH 30.0 MCHC 35.0 RDW Std Deviation 38.1 RDW Coeff of Dse 12.1 Plt Count 282 MPV 9.3 Immature Gran % (Auto) 0.3 Neut % (Auto) 80.0 Lymph % (Auto) 14.2 [place] % (Auto) 4.9 Eos % (Auto) 0.4 Baso % (Auto) 0.2 Immature Gran # (Auto) 0.03 H Neut # (Auto) 8.49 H Lymph # (Auto) 1.51 [place] # (Auto) 0.52 Eos # (Auto) 0.04 Baso # (Auto) 0.02 PT INR APTT PTT Ratio D-Dimer Sodium 143 Potassium 3.4 L Chloride 110 H Carbon Dioxide 23 Anion Gap 10.0 BUN 7 Creatinine 0.63 Est Cr Clr Drug Dosing 87.8 Est GFR ( Amer) 128.2 Est GFR (Non-Af Amer) 110.6 BUN/Creatinine Ratio 10.3 Glucose 82 Calcium 7.8 L Magnesium 1.7 L Total Bilirubin 0.4 AST 15 ALT 15 Alkaline Phosphatase 41 L Troponin I < 0.015 Total Protein 6.6 Albumin 3.5 Globulin 3.1 Albumin/Globulin Ratio 1.1 Lipase 89 TSH 1.850 HCG, Qual Negative Valproic Acid 07/24/19 07/24/19 07/24/19 14:20 14:20 19:56 WBC RBC Hgb Hct MCV MCH MCHC RDW Std Deviation RDW Coeff of Des Plt Count MPV Immature Gran % (Auto) Neut % (Auto) Lymph % (Auto) [place] % (Auto) Eos % (Auto) Baso % (Auto) Immature Gran # (Auto) Neut # (Auto) Lymph # (Auto) [place] # (Auto) Eos # (Auto) Baso # (Auto) PT 10.6 INR 1.0 APTT 22.2 PTT Ratio 0.8 D-Dimer < 190 Sodium Potassium Chloride Carbon Dioxide Anion Gap BUN Creatinine Est Cr Clr Drug Dosing Est GFR ( Amer) Est GFR (Non-Af Amer) BUN/Creatinine Ratio Glucose Calcium Magnesium Total Bilirubin AST ALT Alkaline Phosphatase Troponin I < 0.015 Total Protein Albumin Globulin Albumin/Globulin Ratio Lipase TSH HCG, Qual Valproic Acid 7 L 07/25/19 07/25/19 01:55 01:55 WBC 10.36 RBC 4.59 Hgb 13.8 Hct 40.0 MCV 87.1 MCH 30.1 MCHC 34.5 RDW Std Deviation 39.0 RDW Coeff of Des 12.2 Plt Count 285 MPV 8.9 Immature Gran % (Auto) Neut % (Auto) Lymph % (Auto) [place] % (Auto) Eos % (Auto) Baso % (Auto) Immature Gran # (Auto) Neut # (Auto) Lymph # (Auto) [place] # (Auto) Eos # (Auto) Baso # (Auto) PT INR APTT PTT Ratio D-Dimer Sodium 139 Potassium 4.5 D Chloride 108 H Carbon Dioxide 24 Anion Gap 7.0 BUN 11 D Creatinine 0.72 Est Cr Clr Drug Dosing 76.8 Est GFR ( Amer) 119.7 Est GFR (Non-Af Amer) 103.3 BUN/Creatinine Ratio 15.9 Glucose 85 Calcium 8.6 Magnesium 2.3 Total Bilirubin AST ALT Alkaline Phosphatase Troponin I < 0.015 Total Protein Albumin Globulin Albumin/Globulin Ratio Lipase TSH HCG, Qual Valproic Acid Diagnostic Findings Chest x-ray patent admission was normal Echocardiogram obtained this morning was normal EKG obtained at the time admission revealed a sinus tachycardia with some minor ST segment depressions PG Care Time/CCT Total # of Minutes Spent Total Time Spent with Patient: Total time spent is greater than 50% in co ordination of care (as documented) at patient's floor/unit and/or counseling patient:
--- NOTE | 2019-07-25 16:14 | Discharge Summary ---
Date of Service July 25, 2019 Admission HPI Per Admitting Provider 44-year-old female who presents the ED with lightheadedness and palpitations. Patient reports she was at mosque this morning when she had a sudden onset of not feeling well with lightheadedness and severe heart palpitations. Patient reports she exited the mosque service and a friend was able to get her blood pressure who told her that her blood pressure was very high. Patient drank some water and reports she had felt better but decided to go home. When she arrived home and had laid down, the symptoms returned. She reports she also had some bilateral hand tingling. EMS was called and patient was brought to the ED for further evaluation. Patient denies chest pain or pressure. No shortness of breath. Reports she otherwise been feeling well recently. No recent travel. Denies abdominal pain, nausea, vomiting, diarrhea. No fevers or chills. Denies any urinary symptoms. Patient reports she drank 4 cups of coffee this morning on empty stomach which is per her usual. In the ED, patient is on a be tachycardic in the 110s. EKG shows ST depressions in the anterior and lateral leads. Initial troponin is negative. BP is stable. Labs show mild hypokalemia and hypomagnesemia. Patient was given IVF and IV magnesium replacement. Admission Exam Per Admitting Provider Constitutional: WD/WN, vitals as above Eyes: PERRL, conjunctivae normal, anicteric sclerae ENMT: external ear and nose normal, oropharynx normal Respiratory: normal respiratory effort, lungs clear to auscultation Cardiovascular: Rate/Rhythm: regular rhythm and + tachycardic Vessels: normal peripheral pulses Extremities: no edema Gastrointestinal (Abdomen): normal bowel sounds, soft, nontender, no hepatosplenomegaly Musculoskeletal: no cyanosis or clubbing, extremities motor strength 5/5 Skin: no rashes, warm and dry Neurologic: PERRL, EOMI, accommodation nl, no face palsy, no dysarthria Psychiatric: A+Ox3, euthymic affect Principal Diagnosis Atrial tachycardia Discharge Exam CONSTITUTIONAL: WNWD, generally well-appearing EYES: normal conjunctivae, no scleral icterus ENT: MMM RESPIRATORY: clear to auscultation bilaterally, no crackles, rales or wheezes, normal respiratory effort CARDIOVASCULAR: regular rate and rhythm, S1 and 2 heard without murmurs, gallops or rubs, no JVD, no peripheral edema GASTROINTESTINAL: soft, nontender, nondistended MUSCULOSKELETAL: strength 5/5 throughout, head is normocephalic and atraumatic SKIN: warm and dry NEUROLOGIC: CN 2-12 grossly intact, normal cognition, normal speech, no gross focal deficits. PSYCHIATRIC: alert cooperative and oriented to person, place and time. Discharge Data Allergies Allergy/AdvReac Type Severity Reaction Status Date / Time No Known Allergies Allergy Mild Verified 07/24/19 14:09 Consultations 07/24/19 19:24 Consult Cardiology Routine 07/25/19 10:54 Consult Cardiac Electrophysiology Routine Hospital Course (1) Tachycardia: (2) Abnormal EKG: (3) Near syncope: (4) Migraine: 44-year-old healthy female presented with near syncope palpitations lightheadedness that occurred while attending mosque. She was admitted to the hospital service placed on telemetry. Her EKG revealed sinus tachycardia with ST depressions in the anterior lateral leads which resolved. Her troponin trend was negative. She has a history of chronic migraines and takes medications for these. Cardiology was consulted and suggested the morphology of the P waves on EKG suggested a tachycardic rhythm consistent with atrial tachycardia. Telemetry review revealed no abrupt onset and offset but she did become symptomatic at one point on the morning of discharge, with the episode occurring during the cardiology interview. Her heart rate at this point was in the 130s. A resting echocardiogram revealed normal findings with no evidence of underlying structural heart disease. Dr. Romeo from electrophysiology was consulted for further advice, and agreed with the diagnosis of atrial tachycardia as a possible etiology of her symptoms. Both specialists felt this was a benign phenomenon which can be treated according to symptoms and recommended low-dose beta-inge therapy. Propranolol was recommended given her history of migraine s. As atrial tachycardia was a presumed diagnosis without definitive evidence, antiarrhythmic medications were not recommended at this time. For refractory symptoms in the future in the absence of clear change in P wave morphology, electrophysiologic testing could be considered. At time of discharge she was hemodynamically stable and afebrile and tolerating p.o. She was mentating and ambulating at baseline and symptoms had resolved completely. The plan was discussed with she and her who were in agreement. She was discharged in stable condition with close primary care follow-up recommended to ensure she is doing well on the new beta-inge therapy. Total Time Total Time Spent Total Time Spent (In Minutes): 60 Total Time Includes: Examination of the Patient, Discharge Planning, Medication Reconciliation, Communication With Other Providers and Other (outpatient follow- up) Discharge Plan Discharge Items Patient Disposition: Home - Self-Care Reason For Visit: TACHYCARDIA Discharge Diagnosis: atrial tachycardia Condition on Discharge: Good Activity: Resume your previous activity Non-emergency contact: Primary Care Provider Call non-emergency contact if: you have any medication questions, your symptoms worsen, your pain is not controlled, your pain is worsening, your pain is unusual for you, your pain is concerning for you and you have a fever Follow-up/Referrals: Octavio Mayfield MD [Primary Care Provider] - 08/04/19 11:05 am Diet: Regular Addtl Attending Provider Instructions: Please take propranolol daily and follow-up with your primary care physician per appointment time below. This visit will be to ensure you are doing well on the new medication and ensure you have no further episodes after discharge. 08/04/2019 11:20 AM Octavio Mayfield MD [facility] It was a pleasure taking care of you! Please call if you have any questions or problems. You can reach a [facility] hospitalist on duty at [facility] 24 hours a day by calling [phone]. Take care of yourself. Noa Valera DO [facility] Hospitalist Pending Studies at Discharge: No Stand-Alone Forms: My [facility], Smoking Cessation Medications and DC Order Prescriptions: New propranolol 20 mg tablet 20 mg PO BID Qty: 60 RF: 1 magnesium oxide 400 mg (241.3 mg magnesium) Tablet 400 mg PO BID Qty: 60 RF: 1 Continued divalproex 250 mg tablet,delayed release (DR/EC) 250 mg PO QPM RF: 0 sumatriptan succinate 100 mg tablet 100 mg PO UD PRN (Reason: Migraine Headache) RF: 0 folic acid 1 mg Tablet 1 mg PO DAILY RF: 0 riboflavin (vitamin B2) 400 mg Tablet 400 mg PO DAILY RF: 0 Discontinued magnesium oxide 400 mg magnesium Tablet 400 mg PO QPM RF: 0 Discharge Orders: Discharge Order (Routine); Ordered 07/25/19 Ordered By: Noa Valera Admission Data Admit Date/Time: 07/24/19 17:15 Attending Provider: Noa Valera Admit Provider: Melquiades Gonzalez Primary Care Provider: Octavio Mayfield Other Providers: Ruben Watters Christophe W.
== END 2019-07-25 17:13 | disposition home or self-care (01) ==
LOC: ED 13:13 → 2E 13:13 → SUATTDRO 17:15 → 2E 18:52